=== PATIENT | male | born 1980 | race American Indian/Alaskan Native ===

== ENCOUNTER 2022-01-22 18:36 | Emergency (ER) | payer SELFPAY ==
[2022-01-22 18:43] VITALS: BP 107/73
--- NOTE | 2022-01-22 21:12 | XRay Report ---
Right foot 3 views INDICATION: Right foot pain after injury IMPRESSION: There is prominent edema along the dorsal aspect of the forefoot. No discrete fracture is identified. Signer Name: Tawanda Dunn MD Signed: 01/22/2022 9:08 PM Workstation Name: [id number]
[2022-01-22] MEDS ORDERED: IBUPROFEN 800 MG TAB PO ONE (21:23)
[2022-01-22] MEDS ORDERED: HYDROcodone/ACETAMINOPHEN 5-325 MG TAB PO ONE (21:23)
--- NOTE | 2022-01-22 21:34 | Emergency Department Report ---
ED General Adult HPI - General Chief complaint: Extremity Injury, Lower Stated complaint: FOOT INJURY PUI?: No Time Seen by Provider: 01/22/22 21:30 Source: patient Mode of arrival: Ambulatory Limitations: No Limitations - History of Present Illness -: Gradual, days(s) Severity scale (0 -10): 5 Quality: aching Worsens with: none Treatments Prior to Arrival: none - Related Data Previous Rx's Medication Instructions Recorded Last Taken Type HYDROcodone/ACETAMINOPHEN 1 each PO BID #14 01/22/22 Unknown Rx [Hydrocodone-Acetamin 5-300 mg] Ibuprofen [Motrin] 800 mg PO Q8HR PRN #14 tablet 01/22/22 Unknown Rx Allergies Allergy/AdvReac Type Severity Reaction Status Date / Time No Known Allergies Allergy Verified 01/22/22 18:43 ED Review of Systems ROS: Stated complaint: FOOT INJURY Other details as noted in HPI Constitutional: denies: chills, fever Eyes: denies: eye pain, eye discharge, vision change ENT: denies: ear pain, throat pain Respiratory: denies: cough, shortness of breath, wheezing Cardiovascular: denies: chest pain, palpitations Endocrine: no symptoms reported Gastrointestinal: denies: abdominal pain, nausea, diarrhea Genitourinary: denies: urgency, dysuria Musculoskeletal: denies: back pain, joint swelling, arthralgia Skin: denies: rash, lesions Neurological: denies: headache, weakness, paresthesias Psychiatric: denies: anxiety, depression Hematological/Lymphatic: denies: easy bleeding, easy bruising ED Past Medical Hx - Past Medical History Hx Hypertension: No Hx CVA: No - Medications Home Medications: Home Medications Medication Instructions Recorded Confirmed Last Taken Type HYDROcodone/ACETAMINOPHEN 1 each PO BID #14 01/22/22 Unknown Rx [Hydrocodone-Acetamin 5-300 mg] Ibuprofen [Motrin] 800 mg PO Q8HR PRN #14 tablet 01/22/22 Unknown Rx ED Physical Exam - General Limitations: No Limitations General appearance: alert, in no apparent distress - Head Head exam: Present: atraumatic, normocephalic - Eye Eye exam: Present: normal appearance - ENT ENT exam: Present: mucous membranes moist - Neck Neck exam: Present: normal inspection - Respiratory Respiratory exam: Present: normal lung sounds bilaterally. Absent: respiratory distress - Cardiovascular Cardiovascular Exam: Present: regular rate, normal rhythm. Absent: systolic murmur, diastolic murmur, rubs, gallop - GI/Abdominal GI/Abdominal exam: Present: soft, normal bowel sounds - Rectal Rectal exam: Present: deferred - Extremities Exam Extremities exam: Present: normal inspection - Expanded Lower Extremity Exam Right Foot/Toe exam: Present: tenderness, swelling, ecchymosis, erythema - Back Exam Back exam: Present: normal inspection - Neurological Exam Neurological exam: Present: alert, oriented X3 - Psychiatric Psychiatric exam: Present: normal affect, normal mood - Skin Skin exam: Present: warm, dry, intact, normal color. Absent: rash ED Course Vital Signs 01/22/22 18:41 Temperature 98.1 F Pulse Rate 70 Respiratory 18 Rate Blood Pressure 107/73 [Right] O2 Sat by Pulse 98 Oximetry ED Medical Decision Making - Radiology Data Radiology results: report reviewed, image reviewed - Medical Decision Making pain control, x ray showed no fractures , immobilisation , intact vascularity good capillary refill Critical care attestation.: If time is entered above; I have spent that time in minutes in the direct care of this critically ill patient, excluding procedure time. ED Disposition Clinical Impression: Contusion of right foot Disposition: HOME / SELF CARE / HOMELESS Is pt being admited?: No Does the pt Need Aspirin: No Condition: Stable Instructions: Contusion, [id number], Contusion
== END 2022-01-22 21:49 | disposition home or self-care (01) ==
LOC: ED 18:36
DX: S90.31XA Contusion of right foot, initial encounter (principal); X58.XXXA Exposure to other specified factors, initial encounter; Y93.89 Activity, other specified; Y92.89 Other specified places as the place of occurrence of the external cause; Y99.8 Other external cause status
CPT/HCPCS: 99283